=== PATIENT | male | born 1995 | race African-American/Black ===

== ENCOUNTER 2019-10-14 11:45 | Emergency (ER) | payer OTHER ==
[~2019-10-14] VITALS: Ht 172.7 cm; Wt 70.1 kg
[2019-10-14 11:46] VITALS: BP 155/94
--- NOTE | 2019-10-14 13:09 | REP ---
Clinical: Trauma . Comparison: None . Findings: The ventricles, sulci, and cisterns are normal in position and appearance. Long-white differentiation is maintained. No acute intracranial hemorrhage, mass/mass effect, pathology or trauma/injury. No evidence for acute infarction. No extra-axial fluid collection. Calvarium is intact. Small amount of fluid noted in the left maxillary sinus and the mucocele identified in the left sphenoid sinus. Impression: No evidence for acute intracranial pathology or trauma/injury. Mild sinus disease. Electronically Signed by Carlos Fernandez MD 10/14/2019 01:01 P
[2019-10-14] MEDS ORDERED: IBUPROFEN 800 MG TAB PO ONE (14:00)
[2019-10-15] MEDS ORDERED: LIDOCAINE 2% INJ 100 MG/5 ML SDV (FOR ANES.) As Ordered ONE (15:33)
[2019-10-15] MEDS ORDERED: propofoL 200 MG/20 ML VIAL As Ordered ONE (15:33)
== END 2019-10-14 13:44 | disposition home or self-care (01) ==
LOC: M ED 11:45
DX: S06.0X1A Concussion with loss of consciousness of 30 minutes or less, initial encounter (principal); S00.03XA Contusion of scalp, initial encounter; W00.0XXA Fall on same level due to ice and snow, initial encounter; Y92.59 Other trade areas as the place of occurrence of the external cause; Y93.89 Activity, other specified; Y99.0 Civilian activity done for income or pay; Z88.8 Allergy status to other drugs, medicaments and biological substances; Z87.820 Personal history of traumatic brain injury